=== PATIENT | female | born 1945 | race Caucasian/White ===

== ENCOUNTER 2025-05-05 13:26 | Emergency (ER) | payer MEDICARE, OTHER, SELFPAY ==
[2025-05-05 13:33] VITALS: BP 141/84; PULSE 95; RESP 14; TEMP 37; O2SAT 97; BMI 27.1
--- NOTE | 2025-05-05 13:48 | ED.BACK ---
HPI - Back Pain/Injury <Lurdse Owen PA-C - Last Filed: 05/05/25 19:49> General Chief Complaint: Back Pain/Injury Stated Complaint: middle back pain Time Seen by Provider: 05/05/25 13:45 Source: patient History of Present Illness HPI Narrative: Ms. Dan is a pleasant 79-year-old female with a past medical history of left thoracic back injury many years ago who presents to the emergency department for a flare of her left-sided back pain x6 days. Patient states during an exercise class many years ago she sustained an injury to her left upper back just below her scapula. Since then she occasionally gets flares of the pain with lifting or moving. She was recently lifting which triggered this pain. States it in the past the pain is resolved with the cortisone injections. She also takes Celebrex and Flexeril for this pain however she is almost out of these medications. She went to the walk-in clinic a few days ago and received a Toradol shot however this did not help. She was prescribed Flexeril which did help but she was only given a 3 day supply and she is almost out of it, she also is almost out of her Celebrex which is the only medication that is helping her. She is hoping to have refills of her prescriptions. She denies chest pain, shortness of breath, direct trauma to the area or any other concerns. She does not take blood thinners. Related Data Home Medications ?Medication ?Instructions ?Recorded ?Confirmed atorvastatin 20 mg tablet 20 mg PO BEDTIME 05/03/25 05/03/25 celecoxib 200 mg capsule (Celebrex) 200 mg PO BID 05/03/25 05/03/25 cyclobenzaprine 5 mg tablet 5 mg PO Q12H 05/03/25 05/03/25 estradiol 0.025 mg/24 hr 1 patch transdermal 2XW 05/03/25 05/03/25 semiweekly transdermal patch pantoprazole 40 mg tablet,delayed 40 mg PO DAILY 05/03/25 05/03/25 release progesterone micronized 100 mg 100 mg PO DAILY 05/03/25 05/03/25 capsule Previous Rx's ?Medication ?Instructions ?Recorded cyclobenzaprine 5 mg tablet 5 mg PO TID PRN muscle spasm #14 05/03/25 tabs celecoxib 200 mg capsule (Celebrex) 200 mg PO BID PRN pain #30 caps 05/05/25 cyclobenzaprine 10 mg tablet 10 mg PO TID PRN muscle spasm #30 05/05/25 tabs lidocaine 5 % topical patch 1 patch topical DAILY 30 days #30 05/05/25 (Lidoderm) ea Allergies Allergy/AdvReac Type Severity Reaction Status Date / Time No Known Drug Allergies Allergy Unverified 05/03/25 12:29 Review of Systems <Lurdes Owen PA-C - Last Filed: 05/05/25 19:49> Review of Systems ROS Unobtainable: All systems reviewed & are unremarkable except as noted in HPI and below Patient History <Lurdes Owen PA-C - Last Filed: 05/05/25 19:49> Social History Smoking Status: Never smoker Smoking Status: Never smoker Exam <Lurdes Owen PA-C - Last Filed: 05/05/25 19:49> Narrative Exam Narrative: GENERAL: 79 year old patient appears stated age. Well-developed patient, in no acute distress. HEAD: Atraumatic. Normocephalic. NECK: Trachea midline. Cervical ROM intact. CARDIOVASCULAR: Regular rate and rhythm. RESPIRATORY: ?Nonlabored respirations. ?Speaking in clear, full sentences. ?Clear to auscultation. Breath sounds equal bilaterally. No wheezes, rales, or rhonchi. ? BACK: Subjective pain and tenderness to palpation of the left thoracic paraspinal region just below the scapula. There are no overlying skin changes. She has full range of motion of her upper extremities and strong radial pulses. NEURO: AOx3. ?Clear speech. ?Moves all 4 extremities appropriately. SKIN: No rash or erythema of visible areas Initial Vital Signs Initial Vital Signs: Vital Signs Temperature 98.6 F 05/05/25 13:33 Pulse Rate 95 H 05/05/25 13:33 Respiratory Rate 14 05/05/25 13:33 Blood Pressure 141/84 H 05/05/25 13:33 Pulse Oximetry 97 05/05/25 13:33 Oxygen Delivery Method Room Air 05/05/25 13:33 <Mervat Ulrich DO - Last Filed: 05/07/25 18:43> Initial Vital Signs Initial Vital Signs: Vital Signs Temperature 98.6 F 05/05/25 13:33 Pulse Rate 95 H 05/05/25 13:33 Respiratory Rate 14 05/05/25 13:33 Blood Pressure 141/84 H 05/05/25 13:33 Pulse Oximetry 97 05/05/25 13:33 Oxygen Delivery Method Room Air 05/05/25 13:33 Course <Lurdes Owen PA-C - Last Filed: 05/05/25 19:49> Orders Ordered: Discontinued Medications Celecoxib (Celecoxib 200 Mg Capsule) 200 mg PO NOW ONE Stop: 05/05/25 14:04 Last Admin: 05/05/25 15:05 Dose: 200 mg Documented By: MEHDI Cyclobenzaprine HCl (Cyclobenzaprine 10 Mg Tablet) 10 mg PO NOW ONE Stop: 05/05/25 14:04 Last Admin: 05/05/25 14:51 Dose: 10 mg Documented By: MEHDI Lidocaine (Lidocaine 5% Patch) 1 each TOP NOW ONE Stop: 05/05/25 14:05 Last Admin: 05/05/25 14:51 Dose: 1 each Documented By: MEHDI Vital Signs Vital signs: Vital Signs - 8 hr 05/05/25 13:33 05/05/25 15:07 Temperature 98.6 F Pulse Rate 95 H 86 Respiratory Rate 14 14 Blood Pressure 141/84 H 121/78 Pulse Oximetry 97 93 Oxygen Delivery Method Room Air Room Air <Mervat Ulrich DO - Last Filed: 05/07/25 18:43> Orders Ordered: Discontinued Medications Celecoxib (Celecoxib 200 Mg Capsule) 200 mg PO NOW ONE Stop: 05/05/25 14:04 Last Admin: 05/05/25 15:05 Dose: 200 mg Documented By: MEHDI Cyclobenzaprine HCl (Cyclobenzaprine 10 Mg Tablet) 10 mg PO NOW ONE Stop: 05/05/25 14:04 Last Admin: 05/05/25 14:51 Dose: 10 mg Documented By: MEHDI Lidocaine (Lidocaine 5% Patch) 1 each TOP NOW ONE Stop: 05/05/25 14:05 Last Admin: 05/05/25 14:51 Dose: 1 each Documented By: MEHDI Vital Signs Vital signs: Vital Signs - 8 hr 05/05/25 13:33 05/05/25 15:07 Temperature 98.6 F Pulse Rate 95 H 86 Respiratory Rate 14 14 Blood Pressure 141/84 H 121/78 Pulse Oximetry 97 93 Oxygen Delivery Method Room Air Room Air MDM - Back Pain/Injury <Lurdes Owen PA-C - Last Filed: 05/05/25 19:49> Medical Records Attestation: I reviewed the patient's medical records. MDM Narrative Medical decision making narrative: 79-year-old female with a past medical history of left thoracic back injury many years ago who presents to the emergency department for a flare of her left-sided back pain x6 days. Differential diagnosis includes but is not limited to acute on chronic pain, muscle strain, muscle spasm, arthritis, etc. On exam the patient is in no acute distress, nontoxic appearing, vital signs appropriate. She has focal pain and tenderness of her left thoracic back just below the scapula, this pain is somewhat chronic for the patient but has intermittent flares. Lungs clear to auscultation, abdomen is soft and nontender, no rashes or skin changes on the back. She is requesting refills of Celebrex and Flexeril for this pain, we will also trial Lidoderm. He denies any for stronger pain medication. Patient was prescribed Celebrex, Lidoderm, Flexeril, we also discussed supportive care and follow up with PCP/Orthopedics for further management. Discussed ED return precautions. Patient verbalized understanding of all information and is agreeable with the plan. She is stable for discharge home. Discharge Plan Departure Patient Disposition: Home Clinical Impression: Left-sided thoracic back pain Qualifiers: Chronicity: acute Qualified Code(s): M54.6 - Pain in thoracic spine Instructions: DI for Back Spasm Activity Restrictions/Additional Instructions: Dear Ms. Dan, Thank you for coming to the emergency department. Today you were evaluated for left-sided upper back pain. You have been prescribed Celebrex, cyclobenzaprine, and lidocaine patches. Please rest, continue using heat therapy and ice therapy to this area of your back, in addition to the prescribed medications. Please follow up with the primary care doctor for further evaluation. You may also call to schedule an appointment with [facility] at [phone] for further management. Please follow up with your primary care doctor within the next 2-3 days for ER follow-up. (If you do not have a PCP you can call [phone]. ?to schedule an appointment with an Primary Care Provider) IF YOU DEVELOP ANY NEW OR WORSENING SYMPTOMS, RETURN TO THE ER! Please read the attached instructions, they highlight more specific treatments and interventions for you at home. Thank you for letting me participate in your care, Lurdes Owen PA-C Prescriptions: New cyclobenzaprine 10 mg tablet 10 mg PO TID PRN (Reason: muscle spasm) Qty: 30 0RF celecoxib [Celebrex] 200 mg capsule 200 mg PO BID PRN (Reason: pain) Qty: 30 0RF lidocaine [Lidoderm] 5 % adhesive patch,medicated 1 patch topical DAILY 30 Days Qty: 30 0RF Rx Instructions: leave on most painful area for up to 12 hrs No Action celecoxib [Celebrex] 200 mg capsule 200 mg PO BID progesterone micronized 100 mg capsule 100 mg PO DAILY estradiol 0.025 mg/24 hr patch semiweekly 1 patch transdermal 2XW Rx Instructions: apply 1 patch for 3 days alternating with 1 patch for 4 days each week cyclobenzaprine 5 mg tablet 5 mg PO Q12H atorvastatin 20 mg tablet 20 mg PO BEDTIME pantoprazole 40 mg tablet,delayed release (DR/EC) 40 mg PO DAILY cyclobenzaprine 5 mg tablet 5 mg PO TID PRN (Reason: muscle spasm) Qty: 14 0RF Referrals: Miscellaneous,Doctor, MD [Primary Care Provider, Medical] Stand Alone Forms: Patient Portal/API ED Sign-out <Mervat Ulrich DO - Last Filed: 05/07/25 18:43> Cosign ED Attending Lucy Attestation: I was immediately available in the department for consultation.
[2025-05-05] MEDS: CYCLOBENZAPRINE 10 MG TABLET PO (14:51)
[2025-05-05] MEDS: LIDOCAINE 5% PATCH 1 EACH TOP (14:51)
[2025-05-05] MEDS: CELECOXIB 200 MG CAPSULE PO (15:05)
[2025-05-05 15:07] VITALS: BP 121/78; PULSE 86; RESP 14; O2SAT 93
== END 2025-05-05 15:08 | disposition home or self-care (01) ==
PROVIDERS: Emergency Provider Physician Assistant
DX: M54.6 Pain in thoracic spine (principal)
CPT/HCPCS: 99283